=== PATIENT | female | born 1990 | race Hispanic/Latino ===

== ENCOUNTER 2019-01-31 08:56 | Day surgery (SDC) | payer MEDICAID, OTHER ==
[~2019-01-31] VITALS: Ht 127 cm; Wt 29.9 kg
[2019-01-31] VITALS (7 sets, daily range): BP systolic 93–119; BP diastolic 61–81
[~2019-01-31 08:56] MED LIST: PROPOFOL 10 MG/ML 20ML VIAL IV ONE; SODIUM CHLORIDE 0.9% 1000ML 1,000 ML IV ONE
[2019-01-31] MEDS ORDERED: ESOM20SU PO (10:54)
[2019-01-31] MEDS ORDERED: LEVA1.255 IH (10:54)
[2019-01-31] MEDS ORDERED: RISP1SOL4 PO (10:54)
== END 2019-01-31 12:30 | disposition home or self-care (01) ==
LOC: ENDO 08:56 → DAH 08:56 → ENDO 12:30
PROVIDERS: ATTEND Internal Medicine Gastroenterology
DX: R12 Heartburn (principal); K29.50 Unspecified chronic gastritis without bleeding; K21.0 Gastro-esophageal reflux disease with esophagitis; K44.9 Diaphragmatic hernia without obstruction or gangrene; K31.89 Other diseases of stomach and duodenum; E78.5 Hyperlipidemia, unspecified; J45.909 Unspecified asthma, uncomplicated; Z79.899 Other long term (current) drug therapy; Z93.1 Gastrostomy status
CPT/HCPCS: 43239; 88305; A4215 ×3; A4221; A4222; A4223; A4606; A4615; A4663; J2704; J7030